=== PATIENT | female | born 1955 | race American Indian/Alaskan Native ===

== ENCOUNTER 2023-05-05 07:47 | Day surgery (SDC) | payer BC, OTHER ==
[~2023-05-05] VITALS: Ht 152.4 cm; Wt 84.3 kg
[2023-05-05] VITALS (17 sets, daily range): BP systolic 114–140; BP diastolic 55–74; PULSE 66–96; RESP 9–16; TEMP 97.8–98.7; O2SAT 93–100
[~2023-05-05 07:47] MED LIST: BACL10TA2 PO; CETI10TA14 PO; CHOL500061 PO; CITA-119 PO; CLOP-32 PO; DULA1.5P SUBCUT; LIDOcaine 1% w/EPI 1:100,000 inj. MDV 50 ML VIAL ONE; LISI40TA13 PO; METF-900 PO; MONT-40 PO; OMEG1CAP46 PO; PANT-47 PO; cefazolin 2gm/D5W 100mL 100 ML IV ONE; cocaine 4% topical solution 4ml bottle ONE; epiNEPHrine 1 mg/ml inj ONE; famotidine 20mg tablet PO ONE; mupirocin 2% ointment 22GM ONE; oxymetazoline 15 ML nasal spray NS ONE; ringers solution, lacted 1,000 ML IV SCH; tranexamic acid 100mg/ml inj. ONE; tranexamic acid inj. 1,000 MG in normal saline IV soln 100ML IV ONE
[2023-05-05] MEDS ORDERED: epiNEPHrine 1 mg/ml 30ml MDV SQ ONE (09:00)
[2023-05-05] MEDS ORDERED: mupirocin 2% cream 15gm TP ONE (09:00)
[2023-05-05] MEDS ORDERED: oxymetazoline 15 ML nasal spray NS ONE (09:00)
[2023-05-05] MEDS ORDERED: LIDOcaine 1% W/epiNEPHrine 1:100,000 20ml vial IJ ONE (09:00)
[2023-05-05] MEDS ORDERED: cocaine 4% topical solution 4ml bottle TP ONE (09:00)
[2023-05-05] MEDS ORDERED: sevoflurane 250ml liquid IH ONE (09:45)
[2023-05-05] MEDS ORDERED: dexamethasone sod phosphate 10mg/ml inj ONE (09:45)
[2023-05-05] MEDS ORDERED: acetaminophen 1,000mg/100ml IV 100 ML IV ONE ×2 (09:51→10:06)
[2023-05-05] MEDS ORDERED: LIDOcaine 2% (20mg/ml) 5ml vial ONE (09:51)
[2023-05-05] MEDS ORDERED: fentaNYL/PF 50MCG/1 ML 2ML syringe ONE (09:51)
[2023-05-05] MEDS ORDERED: propofol inj 20 ML IV ONE (09:51)
[2023-05-05] MEDS ORDERED: ondansetron/PF 4mg/2ml inj ONE (09:52)
[2023-05-05] MEDS ORDERED: epiNEPHrine 1 mg/ml 30ml MDV ONE (10:22)
[2023-05-05] MEDS ORDERED: fentaNYL/PF 50MCG/1 ML 2ML syringe IV PRN ×2 (10:35)
[2023-05-05] MEDS ORDERED: hydrALAZINE 20mg/ml inj. IV PRN (10:35)
[2023-05-05] MEDS ORDERED: ringers solution, lacted 1,000 ML IV SCH (10:35)
[2023-05-05] MEDS ORDERED: ondansetron/PF 4mg/2ml inj IV PRN (10:35)
[2023-05-05] MEDS ORDERED: labetalol 20mg/4ml (5mg/ml) syringe IV PRN (10:35)
[2023-05-05] MEDS ORDERED: morphine 2 MG/ML inj. syringe IV PRN (10:35)
[2023-05-05] MEDS ORDERED: ceFAZolin 1000mg inj ONE (11:25)
[2023-05-05] MEDS ORDERED: salt irrigation nasal spray 45 ML SPRAY NS PRN (12:00)
[2023-05-05] MEDS: morphine 4 MG/ML inj SYRINge IV PRN ×2 (12:11→12:58)
[2023-05-05] MEDS ORDERED: oxymetazoline 15 ML nasal spray NS SCH (20:00)
[2023-05-05] MEDS ORDERED: mupirocin 2% nasal ointment 1gm UD NS SCH (20:00)
== END 2023-05-05 15:07 | disposition home or self-care (01) ==
LOC: PAS 07:47
PROVIDERS: ATTEND Otolaryngology
DX: J32.8 Other chronic sinusitis (principal); J34.2 Deviated nasal septum; J34.3 Hypertrophy of nasal turbinates; J34.89 Other specified disorders of nose and nasal sinuses; I10 Essential (primary) hypertension; E11.9 Type 2 diabetes mellitus without complications; Z91.041 Radiographic dye allergy status; Z88.8 Allergy status to other drugs, medicaments and biological substances; Z90.49 Acquired absence of other specified parts of digestive tract; Z98.890 Other specified postprocedural states; Z90.710 Acquired absence of both cervix and uterus; Z85.038 Personal history of other malignant neoplasm of large intestine; Z85.43 Personal history of malignant neoplasm of ovary; Z91.018 Allergy to other foods; Z87.442 Personal history of urinary calculi
CPT/HCPCS: 30140; 30520; 31240; 31254; 31267; 61782; 82948; 87070; 87075; 87102; 93005; A6402; J0131; J0171; J0690; J1100; J2270; J2405; J2704; J3010; J3490; J7030; J7050; J7120; Z7506; Z7508; Z7512; A4618; A6449; A7000